=== PATIENT | male | born 2000 | race Caucasian/White ===

== ENCOUNTER 2022-12-18 20:06 | Emergency (ER) | payer MEDICAID ==
[~2022-12-18] VITALS: Ht 172.7 cm; Wt 79.5 kg
[2022-12-18 20:08] VITALS: BP 151/96
== END 2022-12-18 22:55 | disposition left against medical advice (07) ==
LOC: ER 20:07
DX: R10.9 Unspecified abdominal pain (principal); R19.7 Diarrhea, unspecified; Z53.21 Procedure and treatment not carried out due to patient leaving prior to being seen by health care provider

== ENCOUNTER 2023-10-13 00:06 | Emergency (ER) | payer MEDICAID ==
[~2023-10-13] VITALS: Ht 172.7 cm; Wt 89.3 kg
[2023-10-13 00:12] VITALS: TEMP 99.4
--- NOTE | 2023-10-13 00:37 | NUR ---
PER DR DIAZ, ACS PROTOCOL LABS NEEDED DUE TO LOC.
--- NOTE | 2023-10-13 00:38 | NUR ---
AFTER WATCHING VIDEO OF INCIDENT PROVIDED BY PT FRIEND, PT COMPLAINT CHNAGED TO LEVEL 3 TRAUMA ALERT.
--- NOTE | 2023-10-13 00:57 | NUR ---
Patient resting in bed on the phone. Respirations even and unlabored, no acute distress noted at this time. Call light within reach, patient close to nurses station.
[2023-10-13 01:27] LABS: BASOPHILS % (AUTO) 0.3 % (0-1); EOSINOPHILS # (AUTO) 0.1 X10'3 (0-0.9); EOSINOPHILS % (AUTO) 0.6 % (0-6); HEMATOCRIT 46.2 % (42.0-52.0); LYMPHOCYTES # (AUTO) 1.8 X10'3 (1.1-4.8); LYMPHOCYTES % (AUTO) 17.5 % (21-51); MEAN CORPUSCULAR HGB CONC 34.6 g/dL (33.0-36.5); MEAN CORPUSCULAR VOLUME 89.8 FL (78-98); MEAN PLATELET VOLUME 8.5 FL (7.4-10.4); MONOCYTES # (AUTO) 0.8 X10'3 (0-0.9); MONOCYTES % (AUTO) 7.9 % (2-12); NEUTROPHILS # (AUTO) 7.7 X10'3 (1.8-7.7); NEUTROPHILS % (AUTO) 73.7 % (42-75); PLATELET COUNT 266 X10'3 (140-440); RED BLOOD COUNT 5.15 X10'6 (4.70-6.10); RED CELL DISTRIBUTION WIDTH 12.7 % (11.5-14.5); WHITE BLOOD COUNT 10.4 X10'3 (4.5-11.0)
[2023-10-13 01:40] LABS: ALANINE AMINOTRANSFERASE 41 U/L (12-78); ALBUMIN/GLOBULIN RATIO 1.5 (1.1-1.5); ALKALINE PHOSPHATASE 58 IU/L (20-180); ANION GAP 8 (8-16); ASPARTATE AMINO TRANSFERASE 37 U/L (10-37); BILIRUBIN,TOTAL 1.4 MG/DL (0.1-1.0); BLOOD UREA NITROGEN 16 MG/DL (7-18); BUN/CREATININE RATIO 14.5 (10.0-20.0); CALCIUM 9.7 MG/DL (8.5-10.1); CHLORIDE 101 MMOL/L (99-107); GLUCOSE 93 MG/DL (70-104); POTASSIUM 3.2 MMOL/L (3.5-5.1); SODIUM 138 MMOL/L (135-145); TOTAL CARBON DIOXIDE 29.1 MMOL/L (24-32); TOTAL PROTEIN 8.3 G/DL (6.4-8.2); eCRCL 104 ML/MIN; eGFR 85 ML/MIN
[2023-10-13] MEDS ORDERED: ondansetron/PF 4mg/2ml inj IV ONE (01:55)
[2023-10-13] MEDS ORDERED: morphine 4 MG/ML inj SYRINge IV ONE (01:55)
[2023-10-13] MEDS ORDERED: potassium Cl 20 mEq SR tablet PO STA (01:56)
[2023-10-13 01:57] LABS: PRO BRAIN NATRIURETIC PEPTIDE < 30 PG/ML (0-125)
[2023-10-13] MEDS ORDERED: iohexol 300mg/ml 100ml inj. ONE (01:57)
--- NOTE | 2023-10-13 03:19 | NUR ---
I have reviewed and agree with assessments performed and documented by (COLEMAN HARRELL)
[2023-10-13] MEDS ORDERED: ketorolac trometh. 30mg/ml inj. IV ONE (04:40)
[2023-10-13] MEDS ORDERED: HYDROcodone/acetaminophen 10/325mg tab PO ONE (04:40)
[2023-10-13] MEDS ORDERED: HYDR-3965 PO (04:42)
[2023-10-13 04:54] VITALS: BP 115/70; PULSE 95; RESP 14; O2SAT 97
== END 2023-10-13 05:12 | disposition home or self-care (01) ==
LOC: ER 00:07
DX: R07.81 Pleurodynia (principal); M25.571 Pain in right ankle and joints of right foot
CPT/HCPCS: 36415; 71045; 71260; 73610; 73630; 80053; 83880; 84484; 85025; 96374; 96375; 99285; J1885; J2270; J2405; J3490; Q9967

== ENCOUNTER 2024-02-11 21:11 | Emergency (ER) | payer MEDICAID ==
[~2024-02-11] VITALS: Ht 175.3 cm; Wt 93.2 kg
[2024-02-11 21:14] VITALS: TEMP 98
[2024-02-11 22:14] VITALS: BP 137/75; PULSE 94; RESP 18; O2SAT 98
== END 2024-02-11 22:22 | disposition home or self-care (01) ==
LOC: ER 21:11
DX: R21 Rash and other nonspecific skin eruption (principal); Z88.8 Allergy status to other drugs, medicaments and biological substances; Z79.899 Other long term (current) drug therapy
CPT/HCPCS: 99282

== ENCOUNTER 2024-04-30 19:03 | Emergency (ER) | payer MEDICAID ==
[~2024-04-30] VITALS: Ht 172.7 cm; Wt 86.4 kg
[2024-04-30 20:01] LABS: SYPHILIS SCREENING TEST POC NEGATIVE (Negative)
[2024-04-30] MEDS ORDERED: DOXY-135 PO (20:01)
[2024-04-30] MEDS: CefTRIAXone 1000mg IM Kit (w/lidocaine diluent) IM ONE (20:13)
[2024-04-30 20:48] VITALS: BP 138/76; PULSE 78; RESP 18; TEMP 99; O2SAT 98
[2024-05-03 08:15] LABS: CHLAMYDIA TRACHOMATIS, NAA Positive (Negative)
== END 2024-04-30 20:49 | disposition home or self-care (01) ==
LOC: ER 19:03
DX: A74.89 Other chlamydial diseases (principal); Z91.018 Allergy to other foods; Z79.2 Long term (current) use of antibiotics
CPT/HCPCS: 36415; 87491; 87591; 96372; 99283; J0696

== ENCOUNTER 2024-07-16 20:24 | Emergency (ER) | payer OTHER ==
[~2024-07-16] VITALS: Ht 172.7 cm; Wt 91.3 kg
[2024-07-16 20:27] VITALS: BP 135/63; PULSE 103; RESP 16; TEMP 98.3; O2SAT 98
[2024-07-16] MEDS: LIDOcaine 1% 30ml preserv. free vial IJ STA (21:21)
[2024-07-16] MEDS ORDERED: CEPH-585 PO (21:48)
== END 2024-07-16 21:59 | disposition home or self-care (01) ==
LOC: ER 20:24
DX: S60.151A Contusion of right little finger with damage to nail, initial encounter (principal); Z91.018 Allergy to other foods; X58.XXXA Exposure to other specified factors, initial encounter; Y93.89 Activity, other specified; Y92.89 Other specified places as the place of occurrence of the external cause; Y99.8 Other external cause status
CPT/HCPCS: 11740; 73130; 99284